=== PATIENT | male | born 1975 | race Caucasian/White ===

== ENCOUNTER 2017-05-18 18:15 | Emergency (ER) | payer MEDICAID ==
--- NOTE | 2017-05-18 18:39 | EDM.PDOC ---
ED HPI GENERAL MEDICAL PROBLEM - General Chief Complaint: Fever Stated Complaint: PT HAS FEVER Time Seen by Provider: 05/18/17 18:33 - History of Present Illness INITIAL COMMENTS - FREE TEXT/NARRATIVE: HISTORY AND PHYSICAL: History of present illness: Patient 41-year-old white male who presents for medical screening exam was concerned about having drinking out of the same copy of his who had earlier had an accidental needle stick exposure. Review of systems: As per history of present illness and below otherwise all systems reviewed and negative. Past medical history: As per history of present illness and as reviewed below otherwise noncontributory. Surgical history: As per history of present illness and as reviewed below otherwise noncontributory. Social history: No reported history of drug or alcohol abuse. Family history: As per history of present illness and as reviewed below otherwise noncontributory. Physical exam: HEENT: Atraumatic, normocephalic, pupils reactive, negative for conjunctival pallor or scleral icterus, mucous membranes moist, throat clear, neck supple, nontender, trachea midline. Lungs: Clear to auscultation, breath sounds equal bilaterally, chest nontender. Heart: S1S2, regular, negative for clicks, rubs, or JVD. Abdomen: Soft, nondistended, nontender. Negative for masses or hepatosplenomegaly. Negative for costovertebral tenderness. Pelvis: Stable nontender. Genitourinary: Deferred. Rectal: Deferred. Extremities: Atraumatic, negative for cords or calf pain. Neurovascular unremarkable. Neuro: Awake, alert, oriented. Cranial nerves II through XII unremarkable. Cerebellum unremarkable. Motor and sensory unremarkable throughout. Exam nonfocal. Diagnostics: None Therapeutics: None Impression: #1 medical screening exam Definitive disposition and diagnosis as appropriate pending reevaluation and review of above. ED ROS GENERAL - Review of Systems Review Of Systems: ROS reveals no pertinent complaints other than HPI. ED EXAM, GENERAL - Physical Exam Exam: See Below (See dictation) Departure - Departure Time of Disposition: 18:37 Disposition: Home, Self-Care 01 Condition: Good Clinical Impression: Encounter for medical screening examination - Discharge Information Additional Instructions: The following information is given to patients seen in the emergency department who are being discharged to home. This information is to outline your options for follow-up care. We provide all patients seen in our emergency department with a follow-up referral. The need for follow-up, as well as the timing and circumstances, are variable depending upon the specifics of your emergency department visit. If you don't have a primary care physician on staff, we will provide you with a referral. We always advise you to contact your personal physician following an emergency department visit to inform them of the circumstance of the visit and for follow-up with them and/or the need for any referrals to a consulting specialist. The emergency department will also refer you to a specialist when appropriate. This referral assures that you have the opportunity for followup care with a specialist. All of these measure are taken in an effort to provide you with optimal care, which includes your followup. Under all circumstances we always encourage you to contact your private physician who remains a resource for coordinating your care. When calling for followup care, please make the office aware that this follow-up is from your recent emergency room visit. If for any reason you are refused follow-up, please contact the [facility] emergency department at and asked to speak to the emergency department charge nurse. [facility] [address] [place] [id number] Follow-up primary care above is discussed call to schedule routine appointment return as needed as discussed
[2017-05-18 18:57] VITALS: BP 130/77
== END 2017-05-18 19:30 | disposition home or self-care (01) ==
LOC: MW.ED 18:15
DX: Z13.9 Encounter for screening, unspecified (principal)
CPT/HCPCS: 99281; 99282

== ENCOUNTER 2017-05-20 21:59 | Emergency (ER) | payer MEDICAID ==
--- NOTE | 2017-05-20 22:35 | EDM.PDOC ---
ED HPI GENERAL MEDICAL PROBLEM - General Chief Complaint: Genitourinary Problem Stated Complaint: RIGHT TESITCAL IS IN PAIN Time Seen by Provider: 05/20/17 22:32 - History of Present Illness INITIAL COMMENTS - FREE TEXT/NARRATIVE: HISTORY AND PHYSICAL: History of present illness: Patient 41-year-old male presents with concern of right testicular pain 2 weeks he denies any trauma urethral discharge or other complaints Review of systems: As per history of present illness and below otherwise all systems reviewed and negative. Past medical history: As per history of present illness and as reviewed below otherwise noncontributory. Surgical history: As per history of present illness and as reviewed below otherwise noncontributory. Social history: No reported history of drug or alcohol abuse. Family history: As per history of present illness and as reviewed below otherwise noncontributory. Physical exam: HEENT: Atraumatic, normocephalic, pupils reactive, negative for conjunctival pallor or scleral icterus, mucous membranes moist, throat clear, neck supple, nontender, trachea midline. Lungs: Clear to auscultation, breath sounds equal bilaterally, chest nontender. Heart: S1S2, regular, negative for clicks, rubs, or JVD. Abdomen: Soft, nondistended, nontender. Negative for masses or hepatosplenomegaly. Negative for costovertebral tenderness. Pelvis: Stable nontender. Genitourinary: Right testicular discomfort to palpation no masses no significant induration or fluctuance no hernia Rectal: Deferred. Extremities: Atraumatic, negative for cords or calf pain. Neurovascular unremarkable. Neuro: Awake, alert, oriented. Cranial nerves II through XII unremarkable. Cerebellum unremarkable. Motor and sensory unremarkable throughout. Exam nonfocal. Diagnostics: UA urine for GC and Chlamydia testicular ultrasound Therapeutics: To be determined Impression: #1 right testicular pain Definitive disposition and diagnosis as appropriate pending reevaluation and review of above. Left Penis Pain Score (Numeric/FACES): 7 - Related Data Allergies Allergy/AdvReac Type Severity Reaction Status Date / Time No Known Allergies Allergy Verified 05/18/17 18:51 Home Meds: Home Meds . [No Known Home Meds] 05/18/17 [History] Past Medical History HEENT History: Reports: None Respiratory History: Reports: None Gastrointestinal History: Reports: GERD, Other (See Below) Other Gastrointestinal History: "Barretts esophagus" Genitourinary History: Reports: None Musculoskeletal History: Reports: None Neurological History: Reports: Headaches, Chronic, Migraines, Other (See Below) Other Neuro History: trigeminal neuralgia Psychiatric History: Reports: None Endocrine/Metabolic History: Reports: None Hematologic History: Reports: None Immunologic History: Reports: None Dermatologic History: Reports: None - Past Surgical History GI Surgical History: Reports: Colostomy Social & Family History - Family History Family Medical History: Noncontributory - Tobacco Use Smoking Status *Q: Current Every Day Smoker Years of Tobacco use: 15 Packs/Tins Daily: 1 ED ROS GENERAL - Review of Systems Review Of Systems: ROS reveals no pertinent complaints other than HPI. ED EXAM, GENERAL - Physical Exam Exam: See Below (See dictation) Course - Vital Signs Last Recorded V/S: Last Vital Signs Temp 36.2 C 05/20/17 22:00 Pulse 56 L 05/20/17 22:00 Resp 18 05/20/17 22:00 BP 161/70 H 05/20/17 22:00 Pulse Ox 96 05/20/17 22:00 - Orders/Labs/Meds Orders: Active Orders 24 hr Category Date Time Status Scrotal Duplex Ltd [US] Routine Exams 05/20/17 22:21 Taken Scrotum and Contents [US] Stat Exams 05/20/17 22:09 Taken CHLAMYDIA TRACHOMATIS/GC AMPLF Stat Lab 05/20/17 22:40 Received Labs: Laboratory Tests 05/20/17 Range/Units 22:15 Urine Color YELLOW Urine Appearance CLEAR Urine pH 6.0 (5.0-8.0) Ur Specific [place] 1.025 (1.001-1.035) Urine Protein NEGATIVE (NEGATIVE) mg/dL Urine Glucose (UA) NEGATIVE (NEGATIVE) mg/dL Urine Ketones NEGATIVE (NEGATIVE) mg/dL Urine Occult Blood NEGATIVE (NEGATIVE) Urine Nitrite NEGATIVE (NEGATIVE) Urine Bilirubin NEGATIVE (NEGATIVE) Urine Urobilinogen 0.2 (<2.0) EU/dL Ur Leukocyte Esterase NEGATIVE (NEGATIVE) Urine RBC 1-3 (0-2/HPF) Urine WBC 0-1 (0-5/HPF) Ur Epithelial Cells OCCASIONAL (NONE-FEW) Urine Bacteria FEW (NEGATIVE) Departure - Departure Time of Disposition: 22:34 Disposition: Home, Self-Care 01 Condition: Good Clinical Impression: Testicular pain - Discharge Information Referrals: PCP,None [Primary Care Provider] - Forms: ED Department Discharge Additional Instructions: The following information is given to patients seen in the emergency department who are being discharged to home. This information is to outline your options for follow-up care. We provide all patients seen in our emergency department with a follow-up referral. The need for follow-up, as well as the timing and circumstances, are variable depending upon the specifics of your emergency department visit. If you don't have a primary care physician on staff, we will provide you with a referral. We always advise you to contact your personal physician following an emergency department visit to inform them of the circumstance of the visit and for follow-up with them and/or the need for any referrals to a consulting specialist. The emergency department will also refer you to a specialist when appropriate. This referral assures that you have the opportunity for followup care with a specialist. All of these measure are taken in an effort to provide you with optimal care, which includes your followup. Under all circumstances we always encourage you to contact your private physician who remains a resource for coordinating your care. When calling for followup care, please make the office aware that this follow-up is from your recent emergency room visit. If for any reason you are refused follow-up, please contact the [facility] emergency department at and asked to speak to the emergency department charge nurse. [facility] [address] [place] [id number] Doxycycline as prescribed Motrin/Tylenol as directed follow-up with private medical doctor and urology above return as needed as discussed - My Orders Last 24 Hours: My Active Orders 05/20/17 22:09 Scrotum and Contents [US] Stat 05/20/17 22:21 Scrotal Duplex Ltd [US] Routine 05/20/17 22:40 CHLAMYDIA TRACHOMATIS/GC AMPLF Stat - Assessment/Plan Last 24 Hours: My Active Orders 05/20/17 22:09 Scrotum and Contents [US] Stat 05/20/17 22:21 Scrotal Duplex Ltd [US] Routine 05/20/17 22:40 CHLAMYDIA TRACHOMATIS/GC AMPLF Stat
[2017-05-20 23:51] VITALS: BP 124/80
--- NOTE | 2017-05-21 09:52 | US ---
EXAM DATE: 05/20/17 PATIENT'S AGE: 41 Patient: GUDELIA LEÓN Facility: [place], [place] Site . Site : 1975 Study: US Testicle [id number]/[id number] 10:47:58 PM Ordering Physician: Doctor Jimenez Final Report: INDICATION: Scrotal pain left TECHNIQUE: Ultrasound of the scrotum and contents. Sonographic key-scale images were obtained with color Doppler and spectral waveform analysis of the testicles. COMPARISON: None FINDINGS: Right testicle: 3.4 x 2.8 x 1.9 cm. The testis is normal in echotexture. No masses or suspicious calcifications seen. Normal arterial and venous blood flow present in the testis. Left testicle: 3.2 x 2.9 x 2 cm. The testis is normal in echotexture. No masses or suspicious calcifications seen. Normal arterial and venous blood flow present in the testis. There is a nonspecific hypoechoic structure in the left inguinal region node measures 9 mm. Epididymis: Unremarkable bilaterally. Normal blood flow noted. Misc: No sign of hydrocele. No sign of varicocele. Scrotal wall is normal. IMPRESSION: 1. Unremarkable ultrasound of the scrotum. 2. There is a nonspecific hypoechoic structure in the left inguinal region node measures 9 mm. Clinical correlation recommended to exclude a hernia. Dictated by Josias Snider MD @ 05/20/2017 10:59:37 PM Dictated by: Josias Snider MD @ 05/20/2017 22:59:44 (Electronic Signature) Report Signed by Proxy. DEBBIE
--- NOTE | 2017-05-21 09:52 | US ---
EXAM DATE: 05/20/17 PATIENT'S AGE: 41 Patient: GUDELIA LEÓN Facility: [place], [place] Site . Site : 1975 Study: US Testicle [id number]/[id number] 10:47:58 PM Ordering Physician: Doctor Jimenez Final Report: INDICATION: Scrotal pain left TECHNIQUE: Ultrasound of the scrotum and contents. Sonographic key-scale images were obtained with color Doppler and spectral waveform analysis of the testicles. COMPARISON: None FINDINGS: Right testicle: 3.4 x 2.8 x 1.9 cm. The testis is normal in echotexture. No masses or suspicious calcifications seen. Normal arterial and venous blood flow present in the testis. Left testicle: 3.2 x 2.9 x 2 cm. The testis is normal in echotexture. No masses or suspicious calcifications seen. Normal arterial and venous blood flow present in the testis. There is a nonspecific hypoechoic structure in the left inguinal region node measures 9 mm. Epididymis: Unremarkable bilaterally. Normal blood flow noted. Misc: No sign of hydrocele. No sign of varicocele. Scrotal wall is normal. IMPRESSION: 1. Unremarkable ultrasound of the scrotum. 2. There is a nonspecific hypoechoic structure in the left inguinal region node measures 9 mm. Clinical correlation recommended to exclude a hernia. Dictated by Josias Snider MD @ 05/20/2017 10:59:37 PM Dictated by: Josias Snider MD @ 05/20/2017 22:59:44 (Electronic Signature) Report Signed by Proxy. DEBBIE
== END 2017-05-20 23:49 | disposition home or self-care (01) ==
LOC: MW.ED 21:59
DX: N50.811 Right testicular pain (principal); F17.210 Nicotine dependence, cigarettes, uncomplicated; K21.9 Gastro-esophageal reflux disease without esophagitis
CPT/HCPCS: 76870; 76870-26; 81001; 87491; 87591; 93976; 93976-26; 99283; 99284-25